=== PATIENT | female | born 2000 | race African-American/Black ===

== ENCOUNTER 2022-04-14 21:39 | Day surgery (SDC) ==
[2022-04-14 22:07] VITALS: BMI 25.0
[2022-04-14] MEDS ORDERED: hydrALAZINE 20 MG/ML VIAL SLOW IVP PRN (22:12)
== END 2022-04-14 23:01 | disposition short-term general hospital (02) ==
LOC: CSHLD/OP 21:39
PROVIDERS: ATTEND Obstetrics & Gynecology
DX: O26.892 Other specified pregnancy related conditions, second trimester (principal); R10.30 Lower abdominal pain, unspecified; R19.7 Diarrhea, unspecified; Z3A.22 22 weeks gestation of pregnancy
CPT/HCPCS: 99283

== ENCOUNTER 2022-04-14 22:57 | Emergency (ER) | payer SELFPAY | END 2022-04-14 23:43 | disposition home or self-care (01) | LOC: CSHERS 22:57 | DX: Z34.82 Encounter for supervision of other normal pregnancy, second trimester (principal); Z3A.24 24 weeks gestation of pregnancy | CPT/HCPCS: 99284 ==